=== PATIENT | female | born 1985 | race Caucasian/White ===

== ENCOUNTER → 2017-11-17 | Emergency (ER) | payer BC, OTHER ==
[~2017-11-17] MED LIST: ACETAMINOPHEN 500 MG CPLT PO PRN; ASPIRIN 325 MG TAB PO SCH; DIAZ5 PO; ENAL5TAB PO; FERR325T PO; IBUP600 PO; INFLUENZA VIRUS VACCINE (QUADRIVALENT) 0.5 ML SYR IM ONE; NITROGLYCERIN 0.4 MG SL 25 TABS/BTL SL PRN; ONDANSETRON HCL 4 MG/2 ML VIAL IV PUSH PRN; PERC5TAB12 PO; PERI8.6T PO; PREN29CH PO; SODIUM CHLORIDE 0.9% FLUSH 10 ML FLUSH IV FLUSH PRN; SODIUM CHLORIDE 0.9% FLUSH 10 ML FLUSH IV FLUSH SCH
== END | disposition still patient (30) ==
LOC: NEPG 08:36
DX: Z00.8 Encounter for other general examination (principal)
CPT/HCPCS: 72148; 90686; Q2038

== ENCOUNTER 2018-04-29 09:23 | Emergency (ER) | payer BC, MEDICAID ==
[~2018-04-29] VITALS: Ht 162.6 cm; Wt 100.0 kg
[2018-04-29] VITALS (7 sets, daily range): BP systolic 119–138; BP diastolic 65–94; PULSE 68–78; RESP 16–18; TEMP 97.5–97.8; O2SAT 98–100
[~2018-04-29 09:23] MED LIST changes: -ACETAMINOPHEN 500 MG CPLT PO PRN; -ASPIRIN 325 MG TAB PO SCH; -INFLUENZA VIRUS VACCINE (QUADRIVALENT) 0.5 ML SYR IM ONE; -NITROGLYCERIN 0.4 MG SL 25 TABS/BTL SL PRN; -ONDANSETRON HCL 4 MG/2 ML VIAL IV PUSH PRN; -SODIUM CHLORIDE 0.9% FLUSH 10 ML FLUSH IV FLUSH PRN; -SODIUM CHLORIDE 0.9% FLUSH 10 ML FLUSH IV FLUSH SCH
[2018-04-29] MEDS ORDERED: NEXI20CA PO (09:35)
[2018-04-29] MEDS ORDERED: ASPIRIN 81 MG CHEW TAB PO ONE (10:00)
[2018-04-29] MEDS ORDERED: SODIUM CHLORIDE 0.9% FLUSH 10 ML FLUSH IVF PRN (10:00)
[2018-04-29] MEDS ORDERED: SODIUM CHLORID 0.9% 500 ML INJ 500 ML IV ONE (10:00)
--- NOTE | 2018-04-29 10:02 | PD ---
HPI Chief Complaint: Chest Pain Time Seen by Provider: 09:40 Travel History International Travel<30 days: No Contact w/Intl Traveler<30days: No Traveled to known affect area: No History of Present Illness HPI The patient is a 32-year-old female who presents to the emergency department for chest pain. The patient awakened at 6:30 AM and was getting supplies ready for the day, for her children, when she noticed that she has some substernal chest pain. The patient only noticed the chest pain at rest, did not notice the chest pain while she was getting the kids ready in the morning. The chest pain was substernal, radiated to the back, was associated mild shortness of breath and nausea. She denied any diaphoresis. The chest pain has currently resolved. The patient had a similar episode in November 2017, had a stress test performed at that time which was negative. The patient does have a history of hypertension, possible borderline hyperlipidemia, but denies any history of tobacco use, diabetes, coronary artery disease, or significant early family history for heart disease. The patient denies any recent exertional symptoms. The patient does have a history of lap band with reflux and currently takes Nexium. The chest pain was described as pressure. The patient denies any history of pulmonary embolism, DVT, recent hospitalizations, surgery, or prolonged travel. She denies any significant edema to lower extremities. PFSH Past Medical History Anemia: Yes Asthma: No Autoimmune Disease: No Blood Disorders: No Anxiety: No Depression: No Heart Rhythm Problems: No Cancer: No Cardiovascular Problems: No High Cholesterol: No Chemotherapy: No Chest Pain: No Congestive Heart Failure: No COPD: No Diabetes: No Diminished Hearing: No Endocrine: No Gastrointestinal Disorders: Yes (acid reflux, constipation) GERD: Yes Glaucoma: No Genitourinary: No Hepatitis: No Hiatal Hernia: No Hypertension: Yes Immune Disorder: No Musculoskeletal: Yes (Backpain) Neurologic: No Psychiatric: No Reproductive: No Respiratory: No Radiation Therapy: No Sickle Cell Disease: No Sleep Apnea: No Thyroid Disease: No Ulcer: No Tetanus Vaccination: < 5 Years Influenza Vaccination: Yes ?: Not LMP: 04/16/18 : 1 Para: 1 Past Surgical History Abdominal Surgery: Yes (Lap band ) Body Medical Devices: Port from lap band Cardiac Surgery: No Section: Yes Ear Surgery: No Endocrine Surgery: No Eye Surgery: No Genitourinary Surgery: No Gynecologic Surgery: Yes ( ) Oral Surgery: No Pacemaker: No Thoracic Surgery: No Other Surgery: No Social History Alcohol Use: No Tobacco Use: No Substance Use: No Allergies-Medications (Allergen,Severity, Reaction): Coded Allergies: No Known Allergies (Verified Adverse Reaction, Unknown, 04/29/18) Reported Meds & Prescriptions Reported Meds & Active Scripts Active Reported Nexium (Esomeprazole DR) 20 Mg Capdr 20 Mg PO DAILY Enalapril (Enalapril Maleate) 5 Mg Tab 5 Mg PO DAILY Review of Systems Except as stated in HPI: all other systems reviewed are Neg General / Constitutional: No: Fever HENT: No: Lightheadedness Cardiovascular: Positive: Chest Pain or Discomfort, No: Diaphoresis, Dyspnea on exertion Respiratory: Positive: Shortness of Breath Gastrointestinal: Positive: Nausea, No: Vomiting, Abdominal Pain Musculoskeletal: No: Edema Neurologic: No: Dizziness Physical Exam Narrative GENERAL: Awake, alert, pleasant 32-year-old female who appears her stated age and is in no acute respiratory distress. SKIN: Focused skin assessment warm/dry. HEAD: Atraumatic. Normocephalic. EYES: Pupils equal and round. No scleral icterus. No injection or drainage. ENT: No nasal bleeding or discharge. Mucous membranes pink and moist. NECK: Trachea midline. No JVD. CARDIOVASCULAR: Regular rate and rhythm. No murmur appreciated. RESPIRATORY: No accessory muscle use. Clear to auscultation. Breath sounds equal bilaterally. GASTROINTESTINAL: Abdomen soft, non-tender, nondistended. No epigastric tenderness. No guarding or rigidity. MUSCULOSKELETAL: No obvious deformities. No clubbing. No cyanosis. No edema. NEUROLOGICAL: Awake and alert. No obvious cranial nerve deficits. Motor grossly within normal limits. Normal speech. PSYCHIATRIC: Appropriate mood and affect; insight and judgment normal. Data Data Last Documented VS Vital Signs Date Time Temp Pulse Resp B/P (MAP) Pulse Ox O2 Delivery O2 Flow Rate FiO2 04/29/18 13:30 97.7 72 17 120/68 (85) 100 Room Air Orders Orders Electrocardiogram (04/29/18 09:57) Ckmb (Isoenzyme) Profile (04/29/18 09:57) Complete Blood Count With Diff (04/29/18 09:57) Comprehensive Metabolic Panel (04/29/18 09:57) Magnesium (Mg) (04/29/18 09:57) Prothrombin Time / Inr (Pt) (04/29/18 09:57) Act Partial Throm Time (Ptt) (04/29/18 09:57) Troponin I (04/29/18 09:57) Lipase (04/29/18 09:57) Ecg Monitoring (04/29/18 09:57) Bilateral Bp Monitoring (04/29/18 09:57) Iv Access Insert/Monitor (04/29/18 09:57) Oximetry (04/29/18 09:57) Oxygen Administration (04/29/18 09:57) Aspirin Chew (Aspirin Chew) (04/29/18 10:00) Sodium Chloride 0.9% Flush (Ns Flush) (04/29/18 10:00) Sodium Chlorid 0.9% 500 Ml Inj (Ns 500 M (04/29/18 10:00) Chest, Pa & Lat (04/29/18 09:57) CKMB (04/29/18 10:00) CKMB% (04/29/18 10:00) Troponin I (04/29/18 13:00) Ed Discharge Order (04/29/18 14:17) Labs Laboratory Tests Test 04/29/18 10:00 04/29/18 13:00 White Blood Count 5.9 TH/MM3 Red Blood Count 4.19 MIL/MM3 Hemoglobin 11.4 GM/DL Hematocrit 34.6 % Mean Corpuscular Volume 82.6 FL Mean Corpuscular Hemoglobin 27.2 PG Mean Corpuscular Hemoglobin Concent 33.0 % Red Cell Distribution Width 12.9 % Platelet Count 231 TH/MM3 Mean Platelet Volume 10.4 FL Neutrophils (%) (Auto) 51.7 % Lymphocytes (%) (Auto) 36.7 % Monocytes (%) (Auto) 6.0 % Eosinophils (%) (Auto) 5.0 % Basophils (%) (Auto) 0.6 % Neutrophils # (Auto) 3.1 TH/MM3 Lymphocytes # (Auto) 2.2 TH/MM3 Monocytes # (Auto) 0.4 TH/MM3 Eosinophils # (Auto) 0.3 TH/MM3 Basophils # (Auto) 0.0 TH/MM3 CBC Comment DIFF FINAL Differential Comment Prothrombin Time 10.2 SEC Prothromb Time International Ratio 1.0 RATIO Activated Partial Thromboplast Time 25.4 SEC Blood Urea Nitrogen 8 MG/DL Creatinine 0.87 MG/DL Random Glucose 103 MG/DL Total Protein 6.9 GM/DL Albumin 3.7 GM/DL Calcium Level 8.3 MG/DL Magnesium Level 2.1 MG/DL Alkaline Phosphatase 48 U/L Aspartate Amino Transf (AST/SGOT) 29 U/L Alanine Aminotransferase (ALT/SGPT) 51 U/L Total Bilirubin 0.6 MG/DL Sodium Level 139 MEQ/L Potassium Level 3.7 MEQ/L Chloride Level 107 MEQ/L Carbon Dioxide Level 23.4 MEQ/L Anion Gap 9 MEQ/L Estimat Glomerular Filtration Rate 75 ML/MIN Total Creatine Kinase 103 U/L Creatine Kinase MB 0.8 NG/ML Troponin I LESS THAN 0.02 NG/ML LESS THAN 0.02 NG/ML Lipase 125 U/L MDM Medical Decision Making Medical Screen Exam Complete: Yes Emergency Medical Condition: Yes Medical Record Reviewed: Yes Interpretation(s) EKG reveals sinus rhythm with sinus arrhythmia. RSR prime in V1. Last Impressions Chest X-Ray 04/29/18 0951 Signed Impressions: CONCLUSION: Negative for acute process Laboratory Tests Test 04/29/18 10:00 04/29/18 13:00 White Blood Count 5.9 TH/MM3 Red Blood Count 4.19 MIL/MM3 Hemoglobin 11.4 GM/DL Hematocrit 34.6 % Mean Corpuscular Volume 82.6 FL Mean Corpuscular Hemoglobin 27.2 PG Mean Corpuscular Hemoglobin Concent 33.0 % Red Cell Distribution Width 12.9 % Platelet Count 231 TH/MM3 Mean Platelet Volume 10.4 FL Neutrophils (%) (Auto) 51.7 % Lymphocytes (%) (Auto) 36.7 % Monocytes (%) (Auto) 6.0 % Eosinophils (%) (Auto) 5.0 % Basophils (%) (Auto) 0.6 % Neutrophils # (Auto) 3.1 TH/MM3 Lymphocytes # (Auto) 2.2 TH/MM3 Monocytes # (Auto) 0.4 TH/MM3 Eosinophils # (Auto) 0.3 TH/MM3 Basophils # (Auto) 0.0 TH/MM3 CBC Comment DIFF FINAL Differential Comment Prothrombin Time 10.2 SEC Prothromb Time International Ratio 1.0 RATIO Activated Partial Thromboplast Time 25.4 SEC Blood Urea Nitrogen 8 MG/DL Creatinine 0.87 MG/DL Random Glucose 103 MG/DL Total Protein 6.9 GM/DL Albumin 3.7 GM/DL Calcium Level 8.3 MG/DL Magnesium Level 2.1 MG/DL Alkaline Phosphatase 48 U/L Aspartate Amino Transf (AST/SGOT) 29 U/L Alanine Aminotransferase (ALT/SGPT) 51 U/L Total Bilirubin 0.6 MG/DL Sodium Level 139 MEQ/L Potassium Level 3.7 MEQ/L Chloride Level 107 MEQ/L Carbon Dioxide Level 23.4 MEQ/L Anion Gap 9 MEQ/L Estimat Glomerular Filtration Rate 75 ML/MIN Total Creatine Kinase 103 U/L Creatine Kinase MB 0.8 NG/ML Troponin I LESS THAN 0.02 NG/ML LESS THAN 0.02 NG/ML Lipase 125 U/L Differential Diagnosis Differential diagnosis includes acute coronary syndrome, deconditioning, cardia myopathy, esophagitis, esophageal spasm, GERD, hiatal hernia, pancreatitis, pneumomediastinum. Narrative Course IV was established, labs are drawn and sent, the patient was placed on cardiac telemetry monitoring and continuous pulse oximetry monitoring. EKG was ordered and interpreted. Chest x-ray was obtained. The patient was administered aspirin orally. I do not believe the patient has a pulmonary embolus and, there is no tachycardia, no hypoxia, and no significant risk factors, patient can be ruled out with PERC. The patient's chest x-ray is unremarkable. Initial troponin was less than 0.02. The patient had a previous stress test earlier this year on November 17, 2017 that was negative. I doubt acute coronary syndrome, patient may have GERD, esophagitis, or esophageal spasm. She does have a history of lap band, may benefit from outpatient endoscopy, she is Juan taken a proton pump inhibitor. The patient will be provided a copy of her labs and x-ray results at discharge and is advised to follow-up with gastroenterology. Diagnosis Primary Impression: Atypical chest pain Patient Instructions: General Instructions Additional Instructions: Continue Nexium as previously directed. Please provide the patient a copy of her x-ray results and lab results at discharge. Follow-up with her primary physician. He may benefit from outpatient follow-up with gastroenterology for outpatient EGD. Return if symptoms worsen or progress. Med/Other Pt SpecificInfo: No Change to Meds Disposition: 01 DISCHARGE HOME Condition: Stable Harry Guy MD Apr 29, 2018 10:02
[2018-04-29 10:15] LABS: AUTOMATED NEUTROPHIL # 3.1 TH/MM3 (1.8-7.7); BASOPHIL % 0.6 % (0.0-2.0); EOSINOPHIL # 0.3 TH/MM3 (0-0.4); HEMATOCRIT 34.6 % (35.0-46.0); HEMOGLOBIN 11.4 GM/DL (11.6-15.3); LYMPH % 36.7 % (9.0-44.0); LYMPHOCYTE # 2.2 TH/MM3 (1.0-4.8); MEAN CELL VOLUME 82.6 FL (80.0-100.0); MEAN CORPUSCULAR HEMOGLOBIN 27.2 PG (27.0-34.0); MEAN PLATELET VOLUME 10.4 FL (7.0-11.0); MONOCYTE # 0.4 TH/MM3 (0-0.9); NEUT % 51.7 % (16.0-70.0); PLATELET COUNT 231 TH/MM3 (150-450); RED BLOOD COUNT 4.19 MIL/MM3 (4.00-5.30); RED CELL DISTRIBUTION WIDTH 12.9 % (11.6-17.2); WHITE BLOOD COUNT 5.9 TH/MM3 (4.0-11.0)
[2018-04-29 10:32] LABS: ALBUMIN 3.7 GM/DL (3.4-5.0); ALT (GPT) 51 U/L (10-53); AST (GOT) 29 U/L (15-37); BICARBONATE 23.4 MEQ/L (21.0-32.0); BLOOD UREA NITROGEN 8 MG/DL (7-18); CALCIUM 8.3 MG/DL (8.5-10.1); CHLORIDE 107 MEQ/L (98-107); GLUCOSE,RANDOM 103 MG/DL (74-106); MAGNESIUM 2.1 MG/DL (1.5-2.5); SODIUM (NA) 139 MEQ/L (136-145)
[2018-04-29 10:33] LABS: CREATININE 0.87 MG/DL (0.50-1.00); GLOMERULAR FILTRATION RATE 75 ML/MIN (>89)
[2018-04-29 10:35] LABS: PROTHROMBIN TIME - PATIENT 10.2 SEC (9.8-11.6)
[2018-04-29 10:38] LABS: ALKALINE PHOSPHATASE 48 U/L (45-117); TOTAL BILIRUBIN ADULT 0.6 MG/DL (0.2-1.0); TOTAL PROTEIN 6.9 GM/DL (6.4-8.2); TROPONIN I LESS THAN 0.02 NG/ML (0.02-0.05)
--- NOTE | 2018-04-29 10:58 | RADRPT ---
EXAM DATE: 04/29/2018 10:54 AM EDT AGE/SEX: 32 years / Female INDICATIONS: Chest pain. CLINICAL DATA: This is the patient's initial encounter. Patient reports that signs and symptoms have been present for 3 days and indicates a pain score of 4/10. MEDICAL/SURGICAL HISTORY: Hypercholesterolemia. Hypertension. Diabetes mellitus type II. Cesa rean section. COMPARISON: No prior exams available for comparison. FINDINGS: PA and lateral views of the chest demonstrate the lungs to be symmetrically aerated without evidence of mass, infiltrate or effusion. The cardiomediastinal contours are unremarkable. Osseous structures are intact. CONCLUSION: Negative for acute process Electronically signed by: Xander Garcia MD 04/29/2018 10:57 AM EDT
--- NOTE | 2018-04-29 22:38 | EKG ---
Date Performed: 04/29/2018 Time Performed: 09:36:46 PTAGE: 32 years EKG: Sinus rhythm WITH SINUS ARRHYTHMIA POSSIBLE RIGHT VENTRICULAR CONDUCTION DELAY BORDERLINE ECG INTERPRETATION BASE D ON A DEFAULT AGE OF 40 YEARS PREVIOUS TRACING : 01/26/2014 13.43 Since the previous tracing, no significant change not ed DOCTOR: Brandon Beltran Interpretating Date/Time 04/29/2018 22:36:28
== END 2018-04-29 14:25 | disposition home or self-care (01) ==
LOC: NEPC 09:23
DX: R07.89 Other chest pain (principal); R06.02 Shortness of breath; R11.0 Nausea; I10 Essential (primary) hypertension; K21.9 Gastro-esophageal reflux disease without esophagitis
CPT/HCPCS: 71046; 80053; 82550; 82552; 83690; 83735; 84484; 85025; 85610; 85730; 93005; 99285; J7040